=== PATIENT | female | born 1955 | race African-American/Black ===

== ENCOUNTER → 2016-11-26 | Outpatient (CLI) | payer OTHER ==
--- NOTE | ~2016-11-26 | MY11 ---
[facility] A Service of [facility] & [facility] RADIOLOGY TEXT RESULTS PATIENT: ALBA GONGORA LOCATION: [facility] : 57 UNIT #: [id number] AGE: [address]: TENISHA MOORE MD SEX: F ORDER DR: [id number] [place] [id number] [facility]. [place], [place] [address] [id number] O MR#: [id number] Acc #: [id number] NAME: ALBA GONGORA : 1955 SEX: F STUDY DATE/TIME: 11/26/2016 12:17 UNIT: [facility] ROOM: STUDY DESCRIPTION: MY Mammogram Screening Dig Marlon Attending Physician: Tenisha Moore M.D. Ordering Physician: Tenisha Moore M.D. Primary Care Physician: Tenisha Moore M.D. MEDICAL IMAGING REPORT This report is preliminary unless electronic signature is present EXAM Bilateral digital screening mammogram with CAD. COMPARISON STUDIES None. Prior mammogram performed at [facility] in [place], [place], is not available for comparison. This will, therefore, serve as the patient's effective baseline screening mammogram. HISTORY Breast cancer screening. A 61-year-old asymptomatic female. No personal or family history of breast cancer. FINDINGS Breast tissues are heterogeneously dense, which may obscure detection of small masses. In the superoposterior third of the left breast favored to localize at approximately the 2 o'clock position, there is a focal asymmetry, possibly an intramammary lymph node, measuring up to 11 mm. This appears to be obscured by fibroglandular tissue in the posterior third of the lateral left breast on CC projection. There is a separate focal asymmetry localizing to the 6 o'clock posterior third of the left breast, measuring up to 1.5 cm and a separate focal asymmetry localizing to the 4 o'clock posterior third of the left breast, measuring up to approximately 6 mm, and another focal asymmetry in the 9 o'clock left breast at the junction of the middle and posterior thirds, best seen on MLO view, measuring up to approximately 6 mm. In the right breast, posterior third, there is a cluster of microcalcifications favored to localize to the central location, only well seen on CC projection. In the anterior third of the 7 o'clock right breast, there is a focal asymmetry measuring up to approximately 1 cm. [facility] A Service of [facility] & [facility] RADIOLOGY TEXT RESULTS PATIENT: ALBA GONGORA LOCATION: [facility] : 57 UNIT #: [id number] AGE: [address]: TENISHA MOORE MD SEX: F ORDER DR: IMPRESSION 1. 4 focal asymmetries versus masses within the left breast. Evaluation with spot compression, CC and MLO views, as well as full-field ML view, is recommended, possibly followed by left breast ultrasound. 2. Cluster of right breast microcalcifications is likely in the central posterior third, only well seen on CC projection. Further evaluation with spot magnification CC and spot magnification ML views is recommended. 3. Separate right breast focal asymmetry. Further evaluation with spot compression CC, spot compression MLO views is recommended, possibly followed by right breast ultrasound. Patients over the age of 40 are entered into a reminder system with target due date for the next mammogram. A result letter will also be sent to the patient. BIRADS: 0 Incomplete; need additional imaging evaluation and/or prior mammograms for comparison. Dictated by... Buddy Rivera M.D. THIS IS AN ELECTRONICALLY VERIFIED REPORT Buddy Rivera M.D. at 11/28/2016 12:32 PM Itzel TD: 11/27/2016 12:50 JOB #: [id number] MEDICAL IMAGING REPORT COPY
== END | disposition home or self-care (01) ==
LOC: CWCC 11:56
DX: Z12.31 Encounter for screening mammogram for malignant neoplasm of breast (principal); R92.8 Other abnormal and inconclusive findings on diagnostic imaging of breast; N64.89 Other specified disorders of breast
CPT/HCPCS: G0202

== ENCOUNTER → 2016-12-14 | Outpatient (CLI) | payer OTHER ==
--- NOTE | ~2016-12-14 | US17 ---
[facility] A Service of [facility] RADIOLOGY TEXT RESULTS PATIENT: ALBA GONGORA LOCATION: [facility] : 57 UNIT #: [id number] AGE: [address]: TENISHA MOORE MD SEX: F ORDER DR: [id number] [address] [address] [id number] O MR#: [id number] Acc #: [id number] NAME: ALBA GONGORA : 1955 SEX: F STUDY DATE/TIME: 12/14/2016 15:34 UNIT: [facility] ROOM: STUDY DESCRIPTION: US Breast Bilateral Attending Physician: Tenisha Moore M.D. Referring Physician: Tenisha Moore M.D. Ordering Physician: Tenisha Moore M.D. Primary Care Physician: Tenisha Moore M.D. MEDICAL IMAGING REPORT This report is preliminary unless electronic signature is present EXAM Bilateral breast ultrasound. DATE OF EXAM 12/14/2016 INDICATIONS Bilateral breast masses. PROCEDURE Mak-scale and Doppler imaging of both breasts. COMPARISON Concurrently performed bilateral diagnostic mammogram. FINDINGS/IMPRESSION Refer to separately dictated diagnostic mammogram for workup, findings and recommendations. Patients over the age of 40 are entered into a reminder system with target due date for the next mammogram. A result letter will also be sent to the patient. BIRADS: 3 Probably benign finding; short interval followup suggested. Dictated by... Nick Rivera M.D. THIS IS AN ELECTRONICALLY VERIFIED REPORT Nick Rivera M.D. at 12/17/2016 7:40 AM EED/jt [facility] A Service of [facility] RADIOLOGY TEXT RESULTS PATIENT: ALBA GONGORA LOCATION: [facility] : 57 UNIT #: [id number] AGE: [address]: TENISHA MOORE MD SEX: F ORDER DR: TD: 12/14/2016 21:02 JOB #: [id number] MEDICAL IMAGING REPORT Page 1 of 1 COPY
--- NOTE | ~2016-12-14 | MY6 ---
[facility] A Service of [facility] RADIOLOGY TEXT RESULTS PATIENT: ALBA GONGORA LOCATION: [facility] : 57 UNIT #: [id number] AGE: [address]: TENISHA MOORE MD SEX: F ORDER DR: [id number] [facility] [address] [facility] [facility] [place], [place] [address] [id number] O MR#: [id number] Acc #: [id number] NAME: ALBA GONGORA : 1955 SEX: F STUDY DATE/TIME: 12/14/2016 14:41 UNIT: [facility] ROOM: STUDY DESCRIPTION: MY Mammogram Dx Dig Marlon Attending Physician: Tenisha Moore M.D. Referring Physician: Tenisha Moore M.D. Ordering Physician: Tenisha Moore M.D. Primary Care Physician: Tenisha Moore M.D. MEDICAL IMAGING REPORT This report is preliminary unless electronic signature is present EXAM Bilateral digital diagnostic mammogram. DATE OF EXAM 12/14/2016 INDICATIONS Multiple asymmetries in both breasts on screening mammogram. PROCEDURE True lateral views of both breast. Spot compression views of both breasts in the CC and MLO projections. Spot magnification views of the right breast in the CC and true lateral projection. COMPARISON Screening mammogram from 11/26/2016. FINDINGS RIGHT BREAST: The 10 mm subareolar density in the right breast on the screening mammogram does not clearly persist on spot compression. There is a small cluster of microcalcifications in the posterior right breast not well seen on the true lateral view. These mostly have round morphology. LEFT BREAST: There is a 3 mm persistent mass in the posterior left breast at approximately the 5 o'clock position. There is a 1.3 cm persistent mass in the left breast at approximately the 7 o'clock position. BREAST ULTRASOUND: In the subareolar right breast, there is a 4 mm hypoechoic mass. There are scattered cysts in the left breast, including a 7 mm cyst at the 6 o'clock position. There is a 9 mm cyst left breast at the 2 o'clock [facility] A Service of [facility] RADIOLOGY TEXT RESULTS PATIENT: ALBA GONGORA LOCATION: [facility] : 57 UNIT #: [id number] AGE: [address]: TENISHA MOORE MD SEX: F ORDER DR: position. There is a solid mass in the left breast at the 3 o'clock position that measures 5 x 10 x 7 mm. IMPRESSION 1. Scattered cysts in the left breast probably representing the majority of the findings on the mammogram. 2. A 4 mm hypoechoic mass subareolar right breast and a 10 mm hypoechoic mass in the left breast at 3 o'clock position. Consider ultrasound-guided core biopsy. After discussion with the patient, patient does not wish to have a biopsy. Patient was instructed to discuss these findings and recommendations with her ordering physician. If biopsy is not pursued, recommend attention on a 6-month follow up bilateral breast ultrasound. 3. Small cluster of microcalcifications in the posterior right breast as above. Recommend attention on 6-month follow up right diagnostic mammogram. Patients over the age of 40 are entered into a reminder system with target due date for the next mammogram. A result letter will also be sent to the patient. BIRADS: 3 Probably benign finding; short interval followup suggested. Dictated by... Nick Rivera M.D. THIS IS AN ELECTRONICALLY VERIFIED REPORT Nick Rivera M.D. at 12/17/2016 7:40 AM MALIA/dayana TD: 12/14/2016 20:20 JOB #: [id number] MEDICAL IMAGING REPORT Page 1 of 1 COPY
== END | disposition home or self-care (01) ==
LOC: CMAM 14:05
DX: R92.8 Other abnormal and inconclusive findings on diagnostic imaging of breast (principal); N60.02 Solitary cyst of left breast; N60.01 Solitary cyst of right breast; N63 Unspecified lump in breast; R92.0 Mammographic microcalcification found on diagnostic imaging of breast
CPT/HCPCS: 76641; G0204

== ENCOUNTER → 2017-02-14 | Outpatient (CLI) | payer OTHER ==
--- NOTE | ~2017-02-14 | US135 ---
[facility] A Service of [facility] & [facility] RADIOLOGY TEXT RESULTS PATIENT: ALBA GONGORA LOCATION: [facility] : 57 UNIT #: [id number] AGE: [address]: Payal Naylor MD SEX: F ORDER DR: [id number] [facility] [address] [place], [place] [address] [id number] O MR#: [id number] Acc #: [id number] NAME: ALBA GONGORA : 1955 SEX: F STUDY DATE/TIME: 02/14/2017 11:30 UNIT: [facility] ROOM: STUDY DESCRIPTION: US U/L Ext Art Study Comp Marlon Attending Physician: Payal Naylor M.D. Referring Physician: Payal Naylor M.D. Ordering Physician: Payal Naylor M.D. Primary Care Physician: Tom Leon M.D. MEDICAL IMAGING REPORT This report is preliminary unless electronic signature is present EXAM Bilateral lower extremity arterial duplex, 02/14/2017 HISTORY Peripheral arterial disease FINDINGS The right common femoral artery is widely patent with normal waveform and a velocity of 88 cm/sec. The profunda femoral artery is widely patent with a velocity of 71 cm/sec. Superficial femoral artery appears widely patent throughout its course without stenosis or plaque within the vessel. Mid thigh velocity is 38 cm/sec with normal waveform. The popliteal artery appears widely patent throughout its course with a velocity of 51 cm/sec. The posterior tibial artery is patent with a velocity of 33 cm/sec, peroneal artery patent with a velocity of 42 cm/sec and anterior tibial artery velocity is 57 cm/sec. The left common femoral artery is widely patent with mild plaque noted posteriorly just before the profunda femoral artery origin but has a velocity of 109 cm/sec. The profunda femoral artery is widely patent with a velocity of 67 cm/sec. Superficial femoral artery is patent throughout its course without significant plaque or intimal thickening and a mid thigh velocity of 71 cm/sec. The popliteal artery is widely patent with a velocity of 50 cm/sec. Posterior tibial artery velocity is 44 cm/sec, peroneal artery 32 cm/sec and anterior tibial artery 46 cm/sec. IMPRESSION Widely patent right and left lower extremity arterial circulation without significant stenosis or occlusions. [facility] A Service of [facility] & [facility] RADIOLOGY TEXT RESULTS PATIENT: ALBA GONGORA LOCATION: [facility] : 57 UNIT #: [id number] AGE: [address]: Payal Naylor MD SEX: F ORDER DR: Dictated by... Payal Naylor M.D. THIS IS AN ELECTRONICALLY VERIFIED REPORT Payal Naylor M.D. at 02/20/2017 11:00 AM Mariano TD: 02/14/2017 12:54 JOB #: [id number] MEDICAL IMAGING REPORT Page 1 of 1 COPY
--- NOTE | ~2017-02-14 | US136 ---
[facility] A Service of [facility] & [facility] RADIOLOGY TEXT RESULTS PATIENT: ALBA GONGORA LOCATION: [facility] : 57 UNIT #: [id number] AGE: [address]: Payal Naylor MD SEX: F ORDER DR: [id number] [facility] [address] [facility]. [place], [place] [address] [id number] O MR#: [id number] Acc #: [id number] NAME: ALBA GONGORA : 1955 SEX: F STUDY DATE/TIME: 02/14/2017 11:12 UNIT: [facility] ROOM: STUDY DESCRIPTION: US U/L Ext Art Study [facility] Bil Attending Physician: Payal Naylor M.D. Referring Physician: Payal Naylor M.D. Ordering Physician: Payal Naylor M.D. Primary Care Physician: Tom Leon M.D. MEDICAL IMAGING REPORT This report is preliminary unless electronic signature is present EXAM Bilateral lower extremity JESSA HISTORY Peripheral arterial disease. FINDINGS The right brachial pressure is 107 and the left is 107. Right dorsalis pedis pressure is 113 and posterior tibial is 111 for an JESSA of 1.06 and a first toe pressure of 93 mmHg. Left dorsalis pedis pressure is 91, posterior tibial is 94 for an JESSA of 0.88 and a first toe pressure of 84 mmHg. PVR waveform at the ankle level and first toe level are normal and intact bilateral. There are triphasic waveforms at the right dorsalis pedis and posterior tibial arteries and biphasic waveforms at the left dorsalis pedis and posterior tibial arteries. IMPRESSION 1. No arterial insufficiency of the right lower extremity with adequate perfusion of the first toe. 2. Mild arterial insufficiency of the left lower extremity with adequate perfusion of the first toe. Dictated by... Payal Naylor M.D. THIS IS AN ELECTRONICALLY VERIFIED REPORT Payal Naylor M.D. at 02/20/2017 11:00 AM MARIAH/rupali TD: 02/14/2017 16:34 [facility] A Service of [facility] & [facility] / [facility] RADIOLOGY TEXT RESULTS PATIENT: ALBA GONGORA LOCATION: [facility] : 57 UNIT #: [id number] AGE: [address]: Payal Naylor MD SEX: F ORDER DR: JOB #: [id number] MEDICAL IMAGING REPORT Page 1 of 1 COPY
== END | disposition home or self-care (01) ==
LOC: CNIV 10:55
DX: E11.65 Type 2 diabetes mellitus with hyperglycemia (principal); I10 Essential (primary) hypertension; E78.5 Hyperlipidemia, unspecified; I73.9 Peripheral vascular disease, unspecified; I77.1 Stricture of artery
CPT/HCPCS: 93922; 93923

== ENCOUNTER → 2017-05-07 | Outpatient (CLI) | payer OTHER ==
--- NOTE | ~2017-05-07 | CR172 ---
[facility] A Service [facility] RADIOLOGY TEXT RESULTS PATIENT: ALBA GONGORA LOCATION: [facility] : 57 UNIT #: [id number] AGE: [address]: TENISHA MOORE MD SEX: F ORDER DR: [id number] [address] [address] [id number] O MR#: [id number] Acc #: [id number] NAME: ALBA GONGORA : 1955 SEX: F STUDY DATE/TIME: 05/07/2017 15:26 UNIT: [facility] ROOM: STUDY DESCRIPTION: CR Knee 3 Views Lt Attending Physician: Tenisha Moore M.D. Referring Physician: Tenisha Moore M.D. Ordering Physician: Tenisha Moore M.D. Primary Care Physician: Tenisha Moore M.D. MEDICAL IMAGING REPORT This report is preliminary unless electronic signature is present EXAM Left knee series INDICATIONS Left knee pain for the past week. PROCEDURE Three views of the left knee. COMPARISON None. FINDINGS Mild patellofemoral arthrosis. Mild joint space narrowing in the medial and lateral compartments. No fracture, dislocation or joint effusion. IMPRESSION 1. No acute findings. 2. Mild patellofemoral arthrosis and joint space narrowing in the medial and lateral compartments. Dictated by... Nick Rivera M.D. THIS IS AN ELECTRONICALLY VERIFIED REPORT Nick Rivera M.D. at 05/13/2017 8:55 AM EED/psc TD: 05/07/2017 23:27 JOB #: [id number] MEDICAL IMAGING REPORT [facility] A [facility] RADIOLOGY TEXT RESULTS PATIENT: ALBA GONGORA LOCATION: [facility] : 57 UNIT #: [id number] AGE: [address]: TENISHA MOORE MD SEX: F ORDER DR: Page 1 of 1 COPY
== END | disposition home or self-care (01) ==
LOC: CRAD 14:48
DX: M25.562 Pain in left knee (principal); M17.12 Unilateral primary osteoarthritis, left knee
CPT/HCPCS: 73562

== ENCOUNTER → 2017-06-05 | Outpatient (CLI) | payer OTHER ==
--- NOTE | ~2017-06-05 | MR103 ---
[facility] A Service of [facility] & [facility] RADIOLOGY TEXT RESULTS PATIENT: ALBA GONGORA LOCATION: [facility] : 57 UNIT #: [id number] AGE: [address]: Alfredo Flowers MD SEX: F ORDER DR: [id number] [facility] [address]. [place], [place] [address] [id number] O MR#: [id number] Acc #: [id number] NAME: ALBA GONGORA : 1955 SEX: F STUDY DATE/TIME: 06/05/2017 8:59 UNIT: [facility] ROOM: STUDY DESCRIPTION: MR Knee Wo Contrast Lt Attending Physician: Alfredo Flowers M.D. Referring Physician: Alfredo Flowers M.D. Ordering Physician: Alfredo Flowers M.D. Primary Care Physician: Tom Leon M.D. [facility] REPORT This report is preliminary unless electronic signature is present. EXAM MRI left knee, 06/05/2017. COMPARISON Left knee radiographs 05/07/2017. HISTORY Order states left knee pain and swelling. History sheet states pain and swelling for 2 months. Knee has diffuse pain. History of arthritis. No trauma, no surgery. FINDINGS There is a mild effusion. A popliteal cyst measures 4.2 cm in length. Patellofemoral alignment is normal. There is no high-grade patellofemoral chondromalacia. The quadriceps and patellar tendons are intact. Cruciate ligaments are normal. The medial meniscus and MCL are normal. Medial compartment articular cartilage is within normal limits. 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 There is a longitudinal horizontal cleavage tear in the midbody of the lateral meniscus. There is a small oblique undersurface tear in the posterior body and horn. Myxoid degeneration extends into the anterior body. There is no displaced meniscal flap or fragment. The lateral collateral ligament complex and popliteus tendon are intact. [facility] A Service of [facility] & [facility] RADIOLOGY TEXT RESULTS PATIENT: ALBA GONGORA [facility] : 57 UNIT #: [id number] AGE: [address]: Alfredo Flowers MD SEX: F ORDER DR: There is no marrow lesion, fracture, or sizeable loose body. IMPRESSION 1. The predominant abnormality is a moderate lateral compartment arthrosis with a slightly complex lateral meniscus tear detailed above without a displaced flap fragment. 2. Joint effusion and popliteal cyst. 3. Cruciate ligaments and medial meniscus are normal. 4. No marrow edema or loose body. 1. Dictated by... Ivy Fernandez M.D. THIS IS AN ELECTRONICALLY VERIFIED REPORT Ivy Fernandez M.D. at 06/06/2017 11:37 AM MATA/dayana TD: 06/05/2017 16:40 JOB #: [id number] [facility] REPORT Page 1 of 1 COPY
== END | disposition home or self-care (01) ==
LOC: CMRI 07:00
DX: M25.462 Effusion, left knee (principal); M71.22 Synovial cyst of popliteal space [Baker], left knee; M17.12 Unilateral primary osteoarthritis, left knee; M23.201 Derangement of unspecified lateral meniscus due to old tear or injury, left knee
CPT/HCPCS: 73721